=== PATIENT | male | born 1955 | race Hispanic/Latino ===

== ENCOUNTER 2017-07-18 09:29 | Emergency (ER) | payer OTHER ==
--- NOTE | 2017-07-18 09:34 | Emergency Department Report ---
ED Upper Extremity Inj HPI - General Stated Complaint: HAND LACERATION Time Seen by Provider: 07/18/17 09:29 Source: patient Mode of arrival: Ambulatory Limitations: No Limitations - History of Present Illness Initial Comments: Patient is a 61-year-old male that presents to emergency room with multiple injuries to his left hand secondary due to a circular saw. Patient has mobility of all the fingers except for the right ring finger which has multiple lacerations. Patient denies fever and chills. Patient states the pain is at a 2 out of 10 at this moment. Patient is unsure of when his last tetanus was. MD Complaint: Injury to:: left, hand, finger -: Sudden Other Extremity Injury: Fingers: Left Other Injuries: none Handedness: right Place: home Severity scale (0 -10): 2 Improves With: none Worsens With: none, movement of extremity Context: injury, other (circular saw injury) Associated Symptoms: weakness, numbness, heard/felt popping sensat Treatments Prior to Arrival: bandage - Related Data Allergies Allergy/AdvReac Type Severity Reaction Status Date / Time No Known Allergies Allergy Verified 07/18/17 09:57 ED Review of Systems ROS: Stated complaint: HAND LACERATION Other details as noted in HPI Comment: All other systems reviewed and negative Constitutional: denies: chills, fever Eyes: denies: eye pain, eye discharge, vision change ENT: denies: ear pain, throat pain Respiratory: denies: cough, shortness of breath, wheezing Cardiovascular: denies: chest pain, palpitations Endocrine: no symptoms reported Gastrointestinal: denies: abdominal pain, nausea, diarrhea Genitourinary: denies: urgency, dysuria Musculoskeletal: denies: back pain, joint swelling, arthralgia Skin: denies: rash, lesions Neurological: numbness, paresthesias. denies: headache, weakness Psychiatric: denies: anxiety, depression Hematological/Lymphatic: denies: easy bleeding, easy bruising ED Past Medical Hx - Past Medical History Previous Medical History?: No - Surgical History Past Surgical History?: No - Family History Family history: no significant - Social History Smoking Status: Never Smoker Substance Use Type: None ED Physical Exam - General Limitations: No Limitations General appearance: alert, in no apparent distress - Head Head exam: Present: atraumatic, normocephalic - Eye Eye exam: Present: normal appearance - ENT ENT exam: Present: mucous membranes moist - Neck Neck exam: Present: normal inspection - Respiratory Respiratory exam: Present: normal lung sounds bilaterally. Absent: respiratory distress - Cardiovascular Cardiovascular Exam: Present: regular rate, normal rhythm. Absent: systolic murmur, diastolic murmur, rubs, gallop - GI/Abdominal GI/Abdominal exam: Present: soft, normal bowel sounds - Rectal Rectal exam: Present: deferred - Extremities Exam Extremities exam: Absent: normal inspection - Expanded Upper Extremity Exam Left General: Present: laceration (multiple lacerations to the left hand worst being in the left ring finger. Tendon injury noted to the other fingers as well obvious deformity to the left ring finger) Hand Wrist exam: Present: tenderness, laceration, ecchymosis, deformity - Back Exam Back exam: Present: normal inspection - Neurological Exam Neurological exam: Present: alert, oriented X3 - Psychiatric Psychiatric exam: Present: normal affect, normal mood - Skin Skin exam: Present: warm, dry, intact, normal color. Absent: rash ED Course Vital Signs 07/18/17 07/18/17 10:00 12:55 Temperature 98.6 F Pulse Rate 63 60 Respiratory 22 18 Rate Blood Pressure 149/58 Blood Pressure 134/78 [Right] O2 Sat by Pulse 98 99 Oximetry - Reevaluation(s) Reevaluation #1: [facility] center contacted 07/18/17 10:13 Reevaluation #2: Spoke with Dr. Alberts from [facility]. Dr. Alberts accepted patient 07/18/17 10:38 Reevaluation #3: Or so consult, Dr. Yu. Ortho recommends transfer to a hand specialist due to the extent of hand trauma. will Go forward with the transfer to [facility] 07/18/17 10:57 ED Medical Decision Making - Lab Data Result diagrams: 07/18/17 09:38 07/18/17 09:38 - Radiology Data Radiology results: report reviewed, image reviewed - Medical Decision Making Patient 61-year-old male with multiple trauma to his left hand and fingers. Patient to be transferred to a hand surgeon, Dr. Alberts at [facility] - Differential Diagnosis hand trauma. Finger lacerations. Tendon lacerations. Critical Care Time: Yes Critical care attestation.: If time is entered above; I have spent that time in minutes in the direct care of this critically ill patient, excluding procedure time. Critical Care Time: 40 minutes spent for critical care time ED Disposition Clinical Impression: Hand injury, Hand laceration, Extensor tendon laceration of finger with open wound, Fracture, finger, open, Laceration of flexor tendon of hand Disposition: [id number] ANOTHER TYPE HLTHCARE Is pt being admited?: No Does the pt Need Aspirin: No Condition: Critical Referrals: TRISTEN MCKEON MD, PHD [Primary Care Provider] - 3-5 Days Time of Disposition: 10:14
[2017-07-18] MEDS ORDERED: ZOFRAN ONE (09:52)
[2017-07-18] MEDS ORDERED: DILAUDID ONE (09:53)
[2017-07-18] MEDS ORDERED: BOOSTRIX IM ONE (10:10)
[2017-07-18] MEDS ORDERED: NACL 0.9% 500 ML IR ONE (10:13)
[2017-07-18 10:17] LABS: Basophils # (Auto) 0.1 K/mm3 (0.0-0.1); Basophils % (Auto) 0.9 % (0.0-1.8); Eosinophils # (Auto) 0.3 K/mm3 (0.0-0.4); Eosinophils % (Auto) 3.7 % (0.0-4.3); Hematocrit 36.4 % (35.5-45.6); Hemoglobin 11.6 gm/dl (11.8-15.2); Lymphocytes # (Auto) 2.6 K/mm3 (1.2-5.4); Lymphocytes % (Auto) 34.7 % (13.4-35.0); Mean Corpuscular HGB Conc 32 % (32-34); Monocytes # (Auto) 0.8 K/mm3 (0.0-0.8); Monocytes % (Auto) 10.4 % (0.0-7.3); Platelet Count 168 K/mm3 (140-440); Red Blood Count 5.59 M/mm3 (3.65-5.03); Red Cell Distribution Width 16.9 % (13.2-15.2)
[2017-07-18 10:18] LABS: Mean Corpuscular Hemoglobin 21 pg (28-32); Mean Corpuscular Volume 65 fl (84-94)
[2017-07-18 10:33] LABS: Alanine Aminotransferase 36 units/L (7-56); Albumin 4.3 g/dL (3.9-5); BUN/Creatinine Ratio 34; Blood Urea Nitrogen 24 mg/dL (9-20); Calcium 8.8 mg/dL (8.4-10.2); Hemolysis Index 18
--- NOTE | 2017-07-18 11:04 | XRay Report ---
LEFT HAND, ONE VIEW History: Trauma. Findings: No comparison. Severe soft tissue injury is identified involving the distal tip of the third digit and the distal half of the fourth digit. A comminuted fracture is identified involving the middle phalanx of the fourth digit. A tuft fracture is also identified in the fourth digit. There are numerous tiny densities overlying the soft tissues of the distal hand and digits 2-5 which could represent numerous small soft tissue foreign bodies. Please correlate with the image. IMPRESSION: Traumatic soft tissue injury to digits 3 and 4. Comminuted fracture of the middle phalanx of the fourth digit. Tuft fracture of the fourth digit. Apparent numerous soft tissue foreign bodies. Please correlate with the image.
[2017-07-18] MEDS ORDERED: ceFAZolin 1 GM in NACL 0.9% 20 ML IV NR (11:30)
[2017-07-18] MEDS ORDERED: DILAUDID IV ONE ×2 (11:47→12:34)
[2017-07-18] MEDS ORDERED: ZOFRAN IV ONE (11:47)
[2017-07-18] MEDS ORDERED: NACL 0.9% IR ONE (12:16)
[2017-07-18 12:59] VITALS: BP 134/78
== END 2017-07-18 12:45 | disposition other institution (70) ==
LOC: ED 09:29
DX: S62.625B Displaced fracture of middle phalanx of left ring finger, initial encounter for open fracture (principal); W26.8XXA Contact with other sharp object(s), not elsewhere classified, initial encounter; Y93.89 Activity, other specified; Y92.89 Other specified places as the place of occurrence of the external cause; Y99.8 Other external cause status
CPT/HCPCS: 36415; 73120; 80053; 85025; 86850; 86900; 86901; 90471; 90715; 96365; 96375; 96376; 99291; J0690; J1170; J2405